=== PATIENT | male | born 1985 | race Two or more races ===

== ENCOUNTER 2017-04-17 02:22 | Emergency (ER) | payer OTHER ==
[~2017-04-17] VITALS: Ht 177.8 cm; Wt 74.8 kg
[2017-04-17] MEDS ORDERED: SERT50TA PO (02:42)
[2017-04-17] MEDS ORDERED: ALPR0.255 PO (02:42)
--- NOTE | 2017-04-17 02:48 | NUR ---
Patient walked in to ER c/o anxiety. Patient states his friend gave him an unknown beverage and after drinking it he began to hear voices. Patient is A/O x3, ambulatory, denies SI/HI, calm and cooperative. To room 5A. FRANK performed MSE.
[2017-04-17] MEDS ORDERED: LORAZEPAM 2 MG/1 ML VIAL IM ONE (03:15)
--- NOTE | 2017-04-17 03:15 | NUR ---
Patient states he is unable to provide urine specimen at this time. Water given to patient at his request. ERMD notified.
[2017-04-17] MEDS ORDERED: LORAZEPAM 2 MG/1 ML VIAL ONE (03:39)
[2017-04-17 03:50] LABS: CARBON DIOXIDE 27 mmol/L (21-32); CHLORIDE 99 mmol/L (98-107); CREATININE 1.1 mg/dL (0.6-1.3); GLUCOSE 97 mg/dL (74-106); POTASSIUM 3.6 mmol/L (3.5-5.1); UREA NITROGEN, BLOOD 26 mg/dL (7-18)
[2017-04-17 03:56] LABS: ALANINE AMINOTRANSFERASE 34 U/L (16-63); ALKALINE PHOSPHATASE 71 U/L (50-136); ASPARTATE AMINOTRANSFERASE 30 U/L (15-37); BILIRUBIN,DIRECT 0.3 mg/dL (0.0-0.2); BILIRUBIN,TOTAL 1.3 mg/dL (0.2-1.0); TOTAL PROTEIN, SERUM 8.4 g/dL (6.4-8.2)
[2017-04-17 03:57] LABS: THYROID STIMULATING HORMONE 2.441 mIU/mL (0.358-3.740)
[2017-04-17 04:00] LABS: ETHANOL < 3 MG/DL (0-0)
[2017-04-17 04:01] LABS: ACETAMINOPHEN < 2.0 ug/mL (10-30)
[2017-04-17 04:27] LABS: BASOPHILS # (AUTO) 0.1 K/uL (0.0-8.0); BASOPHILS % (AUTO) 0.5 % (0.0-2.0); EOSINOPHILS # (AUTO) 0.1 K/uL (0.0-0.7); EOSINOPHILS % (AUTO) 1.4 % (0.0-7.0); HEMATOCRIT 43.6 % (36.7-47.1); HEMOGLOBIN 14.1 g/dL (12.5-16.3); LYMPHOCYTES # (AUTO) 2.5 K/uL (20.0-40.0); LYMPHOCYTES % (AUTO) 24.2 % (20.5-51.5); MEAN CORPUSCULAR HEMOGLOBIN 19.7 uug (23.8-33.4); MEAN CORPUSCULAR HGB CONC 32 g/dL (32.5-36.3); MEAN CORPUSCULAR VOLUME 60.8 fL (73.0-96.2); MONOCYTES # (AUTO) 0.9 K/uL (2.0-10.0); MONOCYTES % (AUTO) 8.9 % (0.0-11.0); NEUTROPHILS # (AUTO) 6.8 K/uL (1.8-8.9); PLATELET COUNT (AUTO) 276 K/uL (152-348); WHITE BLOOD COUNT (AUTO) 10.5 K/uL (3.6-10.2)
[2017-04-17 04:32] LABS: RED BLOOD CELL COUNT(AUTO) 7.16 MIL/uL (4.06-5.63)
[2017-04-17 06:13] LABS: EOSINOPHILS % (MANUAL) 1 % (0-8); LYMPHOCYTES % (MANUAL) 26 % (20-40); MONOCYTES % (MANUAL) 10 % (2-10); NEUTROPHILS % (MANUAL) 63 % (42-75)
--- NOTE | 2017-04-17 08:52 | NUR ---
offered pt the break fast. pt willing to have some. break fast tray at bedside.pt able to swallow water with no difficulty
--- NOTE | 2017-04-17 09:45 | NUR ---
pt fully awake, finished breakfast. will call for ride.
--- NOTE | 2017-04-17 10:01 | NUR ---
marry called for the pt. pt said will call him
--- NOTE | 2017-04-17 10:10 | NUR ---
Patient discharged to home in stable conditon. Written and verbal after care instructions given. Patient verbalizes understanding of instructions.pt walks in steady gait. pt says feels better, deneis any dizziness or any other distress. pt uncle will come and pick up attendant the pt.
[2017-04-17 10:43] VITALS: BP 111/59
== END 2017-04-17 10:10 | disposition home or self-care (01) ==
LOC: ER 02:29
DX: T50.991A Poisoning by other drugs, medicaments and biological substances, accidental (unintentional), initial encounter (principal); F32.9 Major depressive disorder, single episode, unspecified; F41.9 Anxiety disorder, unspecified; Y92.89 Other specified places as the place of occurrence of the external cause
CPT/HCPCS: 36415; 70030-TC; 84443; 85025; 85730; 93005; A4663; G0480; G0480-TC; J2060

== ENCOUNTER 2019-07-10 14:57 | Emergency (ER) | payer OTHER ==
[~2019-07-10] VITALS: Ht 177.8 cm; Wt 90.7 kg
[2019-07-10] MEDS ORDERED: LORAZEPAM 2 MG/1 ML VIAL IV ONE (15:15)
[2019-07-10] MEDS ORDERED: LORAZEPAM 2 MG/1 ML VIAL ONE (15:18)
--- NOTE | 2019-07-10 15:23 | NUR ---
PT IS IN ROOM 31B. DR OLVERA EVALUATED THE PT.
[2019-07-10 15:30] LABS: BASOPHILS # (AUTO) 0.1 K/uL (0.0-8.0); BASOPHILS % (AUTO) 0.6 % (0.0-2.0); CREATININE 1.4 mg/dL (0.6-1.3); EOSINOPHILS # (AUTO) 0.1 K/uL (0.0-0.7); EOSINOPHILS % (AUTO) 1.6 % (0.0-7.0); HEMATOCRIT 36.8 % (36.7-47.1); HEMOGLOBIN 11.8 g/dL (12.5-16.3); LYMPHOCYTES # (AUTO) 2.5 K/uL (20.0-40.0); LYMPHOCYTES % (AUTO) 29.6 % (20.5-51.5); MEAN CORPUSCULAR HEMOGLOBIN 19.2 uug (23.8-33.4); MEAN CORPUSCULAR HGB CONC 32 g/dL (32.5-36.3); MONOCYTES # (AUTO) 0.7 K/uL (2.0-10.0); MONOCYTES % (AUTO) 8.5 % (0.0-11.0); NEUTROPHILS % (AUTO) 59.7 % (38.5-71.5); PLATELET COUNT (AUTO) 294 K/uL (152-348); POTASSIUM 3.3 mmol/L (3.5-5.1); RED BLOOD CELL COUNT(AUTO) 6.13 MIL/uL (4.06-5.63); WHITE BLOOD COUNT (AUTO) 8.4 K/uL (3.6-10.2)
[2019-07-10 15:43] LABS: BILIRUBIN,DIRECT 0.2 mg/dL (0.0-0.2); TOTAL PROTEIN, SERUM 7.4 g/dL (6.4-8.2)
[2019-07-10 15:59] LABS: BAND % (MANUAL) 3 % (0-10); EOSINOPHILS % (MANUAL) 1 % (0-8); LYMPHOCYTES % (MANUAL) 31 % (20-40); MONOCYTES % (MANUAL) 6 % (2-10); NEUTROPHILS % (MANUAL) 59 % (42-75)
[2019-07-10] MEDS ORDERED: MAG HYDROX/AL HYDROX/SIMETH 30 ML LIQUID UDC PO ONE (17:00)
[2019-07-10] MEDS ORDERED: PANTOPRAZOLE SODIUM 40 MG TABLET.DR PO ONE ×2 (17:00→17:11)
[2019-07-10] MEDS ORDERED: MAG HYDROX/AL HYDROX/SIMETH 30 ML LIQUID UDC ONE (17:11)
--- NOTE | 2019-07-10 19:07 | NUR ---
Recieved patient from Nurse Doe, patient is laying in gurney, arousable to tactile stimuli but does not fully wake up. Patient in no acute distress, awaiting for patient to awaken fully for discharge.
--- NOTE | 2019-07-10 19:07 | NUR ---
REPORT WAS GIVEN TO [facility].
--- NOTE | 2019-07-10 19:50 | NUR ---
Instructed patient not to drive. Patient's rideshare outside the emergency department.
--- NOTE | 2019-07-10 19:50 | NUR ---
Patient discharged to home in stable conditon. Written and verbal after care instructions given. Patient verbalizes understanding of instructions. IV removed. Catheter intact and site benign. Pressure and 4x4 gauze applied to site. No bleeding noted. Patient ambulating with steady gait. All belongings with patient.
[2019-07-10 22:24] VITALS: BP 135/71
== END 2019-07-10 19:50 | disposition home or self-care (01) ==
LOC: ER 15:00
DX: R07.89 Other chest pain (principal); F15.10 Other stimulant abuse, uncomplicated; F41.9 Anxiety disorder, unspecified; Z79.899 Other long term (current) drug therapy
CPT/HCPCS: 36415; 71045; 80048; 80076; 83880; 84484 ×2; 85007; 85025; 85379; 85730; 93005 ×2; 96374; 99285; J2060; 70030-TC; A4663; J7030

== ENCOUNTER 2021-09-09 02:03 | Emergency (ER) | payer MEDICAID, OTHER ==
[~2021-09-09] VITALS: Ht 177.8 cm; Wt 90.7 kg
[~2021-09-09 02:03] MED LIST: ALPR0.255 PO; SERT50TA PO
--- NOTE | 2021-09-09 02:25 | NUR ---
Dr. Pena at bedside for MSE.
[2021-09-09] MEDS ORDERED: SODIUM BICARBONATE 4.2 % (NEUT) 5 ML VIAL ONE (02:29)
[2021-09-09] MEDS ORDERED: LIDOCAINE 1%-EPI 1:100,000 20 ML VIAL ONE (02:29)
[2021-09-09] MEDS ORDERED: LIDOCAINE 1%-EPI 1:100,000 20 ML VIAL IJ ONE (02:30)
[2021-09-09] MEDS ORDERED: CEphaleXIN 500 MG CAPSULE PO ONE (02:30)
[2021-09-09] MEDS ORDERED: SODIUM BICARBONATE 4.2 % (NEUT) 5 ML VIAL TP ONE (02:30)
[2021-09-09] MEDS ORDERED: CEphaleXIN 500 MG CAPSULE ONE (02:36)
[2021-09-09] MEDS ORDERED: CEPH500T PO (03:00)
--- NOTE | 2021-09-09 03:07 | NUR ---
Patient discharged to home in stable condition. Written and verbal after care instructions given. Patient verbalizes understanding of instructions. Stressed follow up or return to ER for worsening s/s. Patient out of ER with steady gait, no acute signs of distress, VSS, all belongings taken.
[2021-09-09 03:08] VITALS: BP 112/74
== END 2021-09-09 03:08 | disposition home or self-care (01) ==
LOC: ER 02:03
DX: S51.811A Laceration without foreign body of right forearm, initial encounter (principal); W45.8XXA Other foreign body or object entering through skin, initial encounter; Y92.89 Other specified places as the place of occurrence of the external cause; F41.9 Anxiety disorder, unspecified; Z79.899 Other long term (current) drug therapy
CPT/HCPCS: 12002; 99283; J3490 ×2; A4663